=== PATIENT | female | born 1950 | race African-American/Black ===

== ENCOUNTER 2016-06-10 16:28 | Outpatient (CLI) | payer OTHER ==
[~2016-06-10 16:28] MED LIST: CITALOPRAM10 MG PO; COZAAR50 MG PO; ORETIC25 MG PO; PROAIR HFA0.09 MG/Ac IH; SPIRIVA MD18 MCG/CAP INH
== END 2016-06-10 19:51 | disposition home or self-care (01) ==
LOC: MLB 16:28
PROVIDERS: ATTEND Internal Medicine Geriatric Medicine
DX: R79.89 Other specified abnormal findings of blood chemistry (principal)

== ENCOUNTER 2016-09-14 16:59 | Outpatient (CLI) | payer OTHER ==
[~2016-09-14 16:59] MED LIST changes: +ALBU-136 IH; +CITA10TA98 PO; -CITALOPRAM10 MG PO; +COZ50 PO; -COZAAR50 MG PO; +ORE25 PO; -ORETIC25 MG PO; -PROAIR HFA0.09 MG/Ac IH; +SPIMDI INH; -SPIRIVA MD18 MCG/CAP INH
[2016-09-14 17:37] LABS: ALBUMIN 3.9 g/dL (3.4-5.0); ANION GAP 10.3 (8-16); CALCIUM 9.6 mg/dL (8.5-10.1); CARBON DIOXIDE 30.5 mmol/L (21-32); CREATININE 0.9 mg/dL (0.6-1.3); POTASSIUM 3.8 mmol/L (3.5-5.1); TOTAL BILIRUBIN 0.4 mg/dL (0.0-1.0)
== END 2016-09-14 19:37 | disposition home or self-care (01) ==
LOC: MLB 16:59
PROVIDERS: ATTEND Internal Medicine Geriatric Medicine
DX: R74.0 Nonspecific elevation of levels of transaminase and lactic acid dehydrogenase [LDH] (principal)
CPT/HCPCS: 36415; 80053; 82977; 83915

== ENCOUNTER 2016-12-22 16:58 | Outpatient (CLI) | payer OTHER ==
[2016-12-22 17:43] LABS: BASOPHILS # (AUTO) 0.3 K/uL (0.00-0.22); HEMOGLOBIN 12.9 g/dL (12.0-16.0)
[2016-12-22 17:46] LABS: BASOPHILS % (AUTO) 2.7 % (0.0-2.0); EOSINOPHILS # (AUTO) 0.3 K/uL (0-0.4); EOSINOPHILS % (AUTO) 2.7 % (0.0-4.0); HEMATOCRIT 39.5 % (36-48); LYMPHOCYTES # (AUTO) 2.8 K/uL (2.5-16.5); LYMPHOCYTES % (AUTO) 27.6 % (20.5-51.1); MEAN CORPUSCULAR HEMOGLOBIN 28 pg (27-31); MEAN CORPUSCULAR HGB CONC 33 g/dL (33-37); MEAN CORPUSCULAR VOLUME 84 fL (80-94); MONOCYTES # (AUTO) 0.6 K/uL (0.8-1.0); MONOCYTES % (AUTO) 5.6 % (1.7-9.3); NEUTROPHILS # (AUTO) 6.3 K/uL (1.8-7.7); NEUTROPHILS % (AUTO) 61.4 % (42.2-75.2); PLATELET COUNT (AUTO) 356 K/uL (140-450); RED BLOOD CELL COUNT(AUTO) 4.71 MIL/uL (4.20-5.40); RED CELL DISTRIBUTION WIDTH 14.1 % (11.6-13.7); WHITE BLOOD COUNT (AUTO) 10.3 K/uL (4.8-10.8)
[2016-12-22 17:58] LABS: ALBUMIN 4.1 g/dL (3.4-5.0); ANION GAP 11.4 (8-16); CALCIUM 9.5 mg/dL (8.5-10.1); CARBON DIOXIDE 30.7 mmol/L (21-32); POTASSIUM 4.1 mmol/L (3.5-5.1); TOTAL BILIRUBIN 0.5 mg/dL (0.0-1.0); TOTAL PROTEIN, SERUM 8.2 g/dL (6.4-8.2)
== END 2016-12-22 20:59 | disposition home or self-care (01) ==
LOC: MLB 16:58
PROVIDERS: ATTEND Internal Medicine Geriatric Medicine
DX: E11.9 Type 2 diabetes mellitus without complications (principal); K76.0 Fatty (change of) liver, not elsewhere classified
CPT/HCPCS: 36415; 80053; 83036; 85025

== ENCOUNTER 2017-01-20 14:02 | Outpatient (CLI) | payer OTHER | END 2017-01-20 20:26 | disposition home or self-care (01) | LOC: MRD 14:02 | PROVIDERS: ATTEND Internal Medicine Geriatric Medicine | DX: M47.894 Other spondylosis, thoracic region (principal); M85.88 Other specified disorders of bone density and structure, other site | CPT/HCPCS: 72072 ==

== ENCOUNTER 2017-03-20 14:47 | Outpatient (CLI) | payer OTHER ==
[2017-03-20 15:58] LABS: ANION GAP 14.1 (8-16); CARBON DIOXIDE 26.9 mmol/L (21-32)
[2017-03-20 15:59] LABS: ALBUMIN 3.8 g/dL (3.4-5.0); CHOL/HDL RATIO 2.5 (1-4.5); THYROID STIMULATING HORMONE 0.89 uIU/mL (0.34-3.74); TOTAL BILIRUBIN 0.3 mg/dL (0.0-1.0)
== END 2017-03-20 20:38 | disposition home or self-care (01) ==
LOC: MLB 14:47
PROVIDERS: ATTEND Internal Medicine Geriatric Medicine
DX: J44.9 Chronic obstructive pulmonary disease, unspecified (principal); R73.03 Prediabetes; E78.5 Hyperlipidemia, unspecified; E55.9 Vitamin D deficiency, unspecified
CPT/HCPCS: 36415; 71020; 80053; 82306; 83036; 84443

== ENCOUNTER 2017-04-12 23:30 | Emergency (ER) | payer OTHER ==
[~2017-04-12] VITALS: Ht 157.5 cm; Wt 96.6 kg
[2017-04-12 23:35] VITALS: BP 129/65
--- NOTE | 2017-04-12 23:41 | NUR ---
AMBULATED TO ER BED 2
--- NOTE | 2017-04-12 23:45 | NUR ---
Patient being evaluated by physician at bedside.
[2017-04-12] MEDS ORDERED: PHENAZOPYRIDINE 100 MG TAB PO ONE (23:50)
[2017-04-12 23:56] LABS: APPEARANCE,URINE CLOUDY (CLEAR); COLOR,URINE BLOODY (YELLOW); PH,URINE 6.5 (5.0-9.0); UGLUCOSE TRACE (NEGATIVE)
[2017-04-12 23:57] LABS: BILIRUBIN,URINE NEGATIVE (NEGATIVE); BLOOD, URINE 3+ (NEGATIVE); LEUKOCYTE ESTERASE ,URINE 2+ (NEGATIVE); NITRITE, URINE POSITIVE (NEGATIVE)
[2017-04-12 23:59] LABS: RBC,URINE TOO NUMEROUS TO COUN /HPF (0-5); WBC,URINE 20-60 /HPF (0-5); YEAST,URINE Moderate /HPF (None Seen)
--- NOTE | 2017-04-13 | NUR ---
66Y/F PT. PRESENTS TO ED WITH C/O BURNING UPON URINATION X 3 DAYS. AAO X4, AMBULATORY WITH STEADY GAIT. SKIN WARM AND DRY. C/O BLADDER PAIN 8/10. VSS, ER MADE AWARE OF PT. STATUS.
[2017-04-13] MEDS ORDERED: cefTRIAXone 1,000 MG in LIDOCAINE 1% ***ER ONLY *** 2.1 ML IM ONE (00:05)
--- NOTE | 2017-04-13 00:30 | NUR ---
Patient discharged with v/s stable. Written and verbal after care instructions given and explained. Patient alert, oriented and verbalized understanding of instructions. Ambulatory with steady gait. All questions addressed prior to discharge. ID band removed. Patient advised to follow up with PMD. Rx of CIPRO 500 MG, PYRIDIUM 100 MG, TYLENOL 500 MG given. Patient educated on indication of medication including possible reaction and side effects. Opportunity to ask questions provided and answered.
[2017-04-13 01:34] VITALS: BP 129/65
== END 2017-04-13 00:30 | disposition home or self-care (01) ==
LOC: MED 23:30
DX: N39.0 Urinary tract infection, site not specified (principal); J45.909 Unspecified asthma, uncomplicated; J44.9 Chronic obstructive pulmonary disease, unspecified; I10 Essential (primary) hypertension; Z90.49 Acquired absence of other specified parts of digestive tract; Z79.899 Other long term (current) drug therapy; Z88.5 Allergy status to narcotic agent; Z88.8 Allergy status to other drugs, medicaments and biological substances
CPT/HCPCS: 81001; 87086; 87186; 96372; 99284; J0696; J2001

== ENCOUNTER 2017-10-27 10:23 | Inpatient (IN) | payer OTHER ==
[~2017-10-27] VITALS: Ht 157.5 cm; Wt 98.4 kg
[2017-10-27 10:29] VITALS: BP 134/74
--- NOTE | 2017-10-27 10:34 | NUR ---
REPORT GIVEN TO NIKA REINA.
--- NOTE | 2017-10-27 10:35 | NUR ---
PT AMBULATED TO ER BED 08
--- NOTE | 2017-10-27 10:40 | NUR ---
PATIENT REPORTS TO ED WITH COMPLAINTS OF ABDOMINAL PAIN THAT STARTS IN THE EPIGASTRIC AREA AND RADIATES TO THE RIGHT SIDE. PATIENT REPORTS PAIN STARTED YESTEDAY WITH NAUSEA AND DRY HEAVES. PATIENT DENIES EATING UNFAMILIAR FOODS. REPORTS LAST BM YESTERDAY AND NORMAL. SKIN IS PINK/WARM/DRY; AAOX4 WITH EVEN AND STEADY GAIT; LUNGS CLEAR BL; HR EVEN AND REGULAR; PT DENIES ANY FEVER, CP, SOB, OR COUGH AT THIS TIME; PATIENT STATES PAIN OF 9/10 AT THIS TIME; VSS; PATIENT POSITIONED FOR COMFORT; HOB ELEVATED; BEDRAILS UP X1; BED DOWN. ER MD MADE AWARE OF PT STATUS.
[2017-10-27] MEDS ORDERED: NACL 0.9% 1,000 ML IV SCH (11:46)
[2017-10-27] MEDS ORDERED: ONDANSETRON 4 MG/2 ML VIAL IVP ONE ×2 (11:50→21:05)
[2017-10-27] MEDS ORDERED: HYDROmorphone PFS 2 MG/ML SYR IVP ONE (11:50)
--- NOTE | 2017-10-27 12:15 | NUR ---
Patient appears to be resting comfortably in bed. Vital Signs within normal limits. Respirations even and unlabored.
[2017-10-27 12:20] LABS: HEMATOCRIT 39.4 % (36-48); MEAN CORPUSCULAR HEMOGLOBIN 27 pg (27-31); MEAN CORPUSCULAR HGB CONC 33 g/dL (33-37); MEAN CORPUSCULAR VOLUME 82.4 fL (80-94); PLATELET COUNT (AUTO) 302 K/uL (140-450); RED BLOOD CELL COUNT(AUTO) 4.77 MIL/uL (4.20-5.40); RED CELL DISTRIBUTION WIDTH 14.6 % (11.6-13.7); WHITE BLOOD COUNT (AUTO) 17.9 K/uL (4.8-10.8)
[2017-10-27 12:29] LABS: ALBUMIN 3.8 g/dL (3.4-5.0); ANION GAP 11.9 (8-16); CARBON DIOXIDE 28.7 mmol/L (21-32); CREATININE 0.9 mg/dL (0.6-1.3); POTASSIUM 3.6 mmol/L (3.5-5.1); TOTAL BILIRUBIN 0.7 mg/dL (0.0-1.0)
[2017-10-27 12:35] LABS: LYMPHOCYTES % (MANUAL) 3 % (20-46); MONOCYTES % (MANUAL) 1 % (5-12)
[2017-10-27] MEDS ORDERED: PIPERACILLIN/TAZOBACTAM 4.5 GM in DEXTROSE 5% 100 ML IV ONE (13:45)
[2017-10-27] MEDS ORDERED: NACL 0.9% 1,000 ML IV ONE (13:45)
[2017-10-27] MEDS ORDERED: POTASSIUM CHL 20 MEQ/D5-1/2NS 1,000 ML IV ONE (13:50)
[2017-10-27] MEDS ORDERED: HYDROmorphone PFS 2 MG/ML SYR IVP PRN (13:50)
[2017-10-27] MEDS ORDERED: PIPERACILLIN/TAZOBACTAM 2.25 GM VIAL IV ONE (13:57)
[2017-10-27 14:22] LABS: APPEARANCE,URINE CLEAR (CLEAR); BILIRUBIN,URINE NEGATIVE (NEGATIVE); BLOOD, URINE NEGATIVE (NEGATIVE); COLOR,URINE YELLOW (YELLOW); LEUKOCYTE ESTERASE ,URINE NEGATIVE (NEGATIVE); NITRITE, URINE NEGATIVE (NEGATIVE); UGLUCOSE NEGATIVE (NEGATIVE)
--- NOTE | 2017-10-27 14:30 | NUR ---
Patient will be admitted to care of dr blevins. Admited to [facility]. Will go to room 118. Belongings list completed. Report to LATOSHA Mckeon.
[2017-10-27 14:35] VITALS: BP 126/56
--- NOTE | 2017-10-27 14:35 | NUR ---
PATIENT ARRIVED VIA GURNEY. RECEIVED REPORT FROM E.Quan NURSE AT THIS TIME. PATIENT IS A&OX4. NO DISTRESS NOTED. NO RESPIRATORY DEPRESSION NOTED. PATIENT HAS A DRY NON-PRODUCTIVE COUGH. PATIENT HAS IV ACCESS ON LEFT AC 20G RUNNING ZOSYN. SWABBED PATIENT'S NOSE WITH MRSA SWAB. PLACED APPROPRIATE SIGNS WITHIN THE ROOM. PATIENT'S AT BEDSIDE. VITAL SIGNS ARE STABLE. WILL CONTINUE TO MONITOR PATIENT.
--- NOTE | 2017-10-27 16:00 | NUR ---
PATIENT RESTING IN BED. WILL CONTINUE TO MONITOR PATIENT.
[2017-10-27] MEDS ORDERED: NON-FORMULARY ITEM (Albuterol Sulfate Hfa* (Proair Hfa*) 2 PUFF) IH PRN (17:05)
[2017-10-27] MEDS ORDERED: HYDROmorphone 1 MG/ML AMP IVP PRN (17:45)
--- NOTE | 2017-10-27 19:25 | NUR ---
GAVE REPORT TO NIGHTSHIFT NURSE. PATIENT IN STABLE CONDITION.
--- NOTE | 2017-10-27 19:35 | NUR ---
RECEIVED REPORT FROM DAY SHIFT RN, PATIENT RESTING IN BED, NO S/S OF DISTRESS NOTED, RESPIRATION EVEN AND UNLABORED, ON ROOM AIR. IV PATENT AND INTACT, PLAN OF CARE DISCUSSED, PATIENT VERBALIZED UNDERSTANDING, CALL LIGHT WITHIN REACH, SAFETY MEASURE ENSURED, WILL CONTINUE TO MONITOR.
--- NOTE | 2017-10-27 20:05 | NUR ---
TEMP 100.7, BP 111/58, HR 106, RR 19, O2SAT 92%, DR. BERNABE AT THE BEDSIDE. DR. BERNABE IS AWARE OF THE TEMPERATURE. NO ORDER RECEIVED AT THIS TIME.
--- NOTE | 2017-10-27 20:20 | NUR ---
SPOKE WITH PATIENT AND USES BIPAP AT HOME WITH PRESSURE SETTING +16/10. PATIENT PLACE ON BIPAP +16/10, RR-10, FIO2-28% . NO SIGN OF RESPIRATORY DISTRESS NOTED
[2017-10-27] MEDS ORDERED: BUPIVACAINE MPF 0.25% 10 ML VIAL INJ ONE (20:52)
[2017-10-27] MEDS: PIPER/TAZO 3.375GM/D5W PREMIX 50 ML IV SCH (20:57)
[2017-10-27] MEDS ORDERED: SUCCINYLCHOLINE CHLORIDE 200 MG/10 ML VIAL IV ONE (21:05)
[2017-10-27] MEDS ORDERED: NEOSTIGMINE 1:1000 10 MG/10 ML VIAL IM ONE (21:05)
[2017-10-27] MEDS ORDERED: GLYCOPYRROLATE 0.2 MG/ML VIAL IV ONE (21:05)
[2017-10-27] MEDS ORDERED: DESFLURANE 240 ML BTL INH ONE (21:05)
[2017-10-27] MEDS ORDERED: PROPOFOL 200 MG/20 ML VIAL IV ONE (21:05)
[2017-10-27] MEDS ORDERED: ROCURONIUM 50 MG/5 ML VIAL IV ONE (21:05)
--- NOTE | 2017-10-27 21:08 | NUR ---
PATIENT OFF THE UNIT FOR SURGERY IN STABLE CONDITION.
--- NOTE | 2017-10-27 21:10 | NUR ---
AKANKSHA BARAHONA, PT GOING TO SURGERY
[2017-10-27] MEDS ORDERED: MIDAZOLAM 2 MG/2 ML VIAL ONE (21:24)
[2017-10-27] MEDS ORDERED: MEPERIDINE 50 MG/ML SYR ONE (21:24)
[2017-10-27] MEDS ORDERED: MEPERIDINE 25 MG/ML SYR IVP PRN ×2 (22:20)
[2017-10-27] MEDS ORDERED: METOCLOPRAMIDE 10 MG/2 ML INJ VIAL IVP PRN (22:20)
[2017-10-27] MEDS ORDERED: MIDAZOLAM 2 MG/2 ML VIAL IVP SCH (23:00)
[2017-10-27 23:55] VITALS: BP 97/43
--- NOTE | 2017-10-27 23:55 | NUR ---
PATIENT IS BACK FROM SURGERY, AWAKE ALERT ORIENTED X4, NO S/S OF DISTRESS NOTED, RESPIRATION EVEN AND UNLABORED, FOUR ABDOMINAL INCISIONS NOTED WITHOUT DRESSING, INCISIONS CLEAN AND DRY. VITAL SIGNS STABLE, CALL LIGHT WITHIN REACH, SAFETY MEASURE ENSURED, WILL CONTINUE TO MONITOR.
[2017-10-28] MEDS ORDERED: ALBUTEROL SULFATE/IPRATROPIU 3 ML SOL IH PRN (00:45)
[2017-10-28] MEDS ORDERED: ALBUTEROL SULFATE/IPRATROPIU 3 ML SOL IH ONE (00:46)
--- NOTE | 2017-10-28 00:47 | NUR ---
PATIENT FEELING SHORTNESS OF BREATH, O2SAT 83%, RT AT THE BEDSIDE. PAGED DR. HUANG, RECEIVED ORDER OF 3ML DUONEB BREATHING TREATMENT PRN Q4H FOR SOB, AND O2 VIA NASAL CANNULA TO KEEP O2SAT BETWEEN 90% - 93%. ORDER READ BACK AND DR. HUANG CONFIRMED.
--- NOTE | 2017-10-28 02:41 | NUR ---
PATIENT IS SLEEPING, NO S/S OF DISTRESS NOTED, RESPIRATION EVEN AND UNLABORED, ON O2 NC 2L. O2SAT 92%. CALL LIGHT WITHIN REACH, SAFETY MEASURE ENSURED, WILL CONTINUE TO MONITOR.
[2017-10-28] MEDS: PIPER/TAZO 3.375GM/D5W PREMIX 50 ML IV SCH ×3 (04:28→20:48)
[2017-10-28] MEDS: HYDROmorphone 1 MG/ML AMP IVP PRN ×2 (04:39→09:14)
[2017-10-28 07:31] LABS: HEMATOCRIT 36.6 % (36-48); HEMOGLOBIN 11.9 g/dL (12.0-16.0); MEAN CORPUSCULAR HEMOGLOBIN 27 pg (27-31); MEAN CORPUSCULAR HGB CONC 33 g/dL (33-37); MEAN CORPUSCULAR VOLUME 83.5 fL (80-94); PLATELET COUNT (AUTO) 254 K/uL (140-450); RED BLOOD CELL COUNT(AUTO) 4.39 MIL/uL (4.20-5.40); WHITE BLOOD COUNT (AUTO) 19.7 K/uL (4.8-10.8)
[2017-10-28 07:36] LABS: CARBON DIOXIDE 22.4 mmol/L (21-32); CREATININE 1.6 mg/dL (0.6-1.3); POTASSIUM 3.4 mmol/L (3.5-5.1)
--- NOTE | 2017-10-28 07:37 | NUR ---
ENDORSED PLAN OF CARE TO DAY SHIFT, AND THE DAY SHIFT RN IS AWARE THAT TWO INCISIONS HAVE MINIMUM AMOUNT OF BLOOD NOTED ON THE GAUZE, AND NEED TO FOLLOW UP WITH DR. BERNABE. PATIENT IS IN STABLE CONDITION.
--- NOTE | 2017-10-28 07:45 | NUR ---
RECEIVED PT FROM STAFF SOFTWARE ENGINEER NURSE, [place], PT IS AWAKE AND SEATED ON THE BED, WITH ON THE BEDSIDE. PT HAS AN IV LINE ON THE LEFT AC G.20, NO IVF RUNNING. PT IS ALERT, ORIENTEDX4. PT IS ON O2 VIA NC AT 2L. SIDE RAILS ARE UP AND CALL LIGHT WITHIN REACH. PT IS S/P APPENDECTOMY, SURGICAL INCISION CHECKED AND SAW A SCANT OF BLOOD, DRESSING WAS PLACED. 2 SURGICAL INCISIONS ARE ON THE MID ABDOMEN AND 2 ON THE LEFT ABDOMINAL SIDE. NO DRAINAGE NOTED EXCEPT FOR A SCANT OF BLOOD. NO SIGN OF DISTRESS NOTED AND WILL CONTINUE TO MONITOR.
[2017-10-28 08:00] VITALS: BP 107/54
[2017-10-28 08:04] LABS: LYMPHOCYTES % (MANUAL) 4 % (20-46); MONOCYTES % (MANUAL) 3 % (5-12)
[2017-10-28] MEDS: CITALOPRAM 20 MG TAB PO SCH (08:30)
--- NOTE | 2017-10-28 08:38 | NUR ---
PATIENT HAS BEEN SCREENED AND CATEGORIZED MODERATE NUTRITION RISK. PATIENT WILL BE SEEN WITHIN 3-5 DAYS OF ADMISSION. 10/30/17 11/01/[address]
[2017-10-28] MEDS: LOSARTAN 50 MG TAB PO SCH (08:47)
[2017-10-28] MEDS ORDERED: NON-FORMULARY ITEM (Tiotropium Bromide* (Spiriva Mdi*) 1 CAP) INH SCH (09:00)
[2017-10-28] MEDS ORDERED: CITALOPRAM HYDROBROMIDE 10 MG PO SCH (09:00)
--- NOTE | 2017-10-28 09:02 | NUR ---
RECEIVED A TELEPHONE ORDER FROM DR. HUANG TO GIVE A BOLUS OF 500CC OF SALINE FOR 2H. ORDER READ BACK AND ACKNOWLEDGED. WILL CARRY OUT ORDER.
[2017-10-28] MEDS ORDERED: NACL 0.9% 500 ML IV SCH ×2 (09:05→09:15)
--- NOTE | 2017-10-28 09:07 | NUR ---
AWAKE AND ALERT RESPONSIVE PATIENT C/O SOB HHN PRM THERAPY GIVEN AT THIS TIME [facility] V60 BIPAP AT BEDSIDE
--- NOTE | 2017-10-28 11:42 | NUR ---
RECEIVED A TELEPHONE ORDER FROM DR. BERNABE FOR THE PT. DR. BERNABE ORDER A FLAGYL 500MG IV Q8H, TORADOL 30MG IV Q6H PRN FOR MODERATE PAIN, PT CONSULT AND FOR PT TO REMAIN ON FULL LIQUID DIET FOR THE NEXT 24H-48H. ORDERS READ BACK AND ACKNOWLEDGED. WILL CARRY OUT MD ORDERS.
[2017-10-28] MEDS: metroNIDAZOLE 500 MG/NS PREMIX 100 ML IV SCH ×2 (12:25→21:19)
--- NOTE | 2017-10-28 13:30 | NUR ---
DR. MISHA HUANG VISITED AND SAW THE PT AND MADE ORDERS FOR THE PT. ACKNOWLEDGED ORDERS.
[2017-10-28] MEDS ORDERED: DEXTROSE 50% 50 ML SYR IVP PRN (13:40)
[2017-10-28] MEDS ORDERED: INSULIN LISPRO SLIDING SCALE 100 UNITS/ML VIAL SUBQ PRN (13:40)
[2017-10-28] MEDS: KETOROLAC 30 MG/ML VIAL IVP PRN ×2 (15:50→22:03)
[2017-10-28 16:00] VITALS: BP 104/52
--- NOTE | 2017-10-28 16:00 | NUR ---
PT VERBALIZED A PAIN RATE OF 5/10 AND MEDICATION WAS GIVEN VIA IV PUSH AND PT TOLERATED IT. WILL REASSESS PAIN LEVEL AFTER AN HR.
--- NOTE | 2017-10-28 17:00 | NUR ---
PT IS AWAKE AND BLOOD GLUCOSE CHECK DONE RESULT IS 122 AND NO INSULIN COVERAGE NEEDED. VITAL SIGNS TAKEN AND IS STABLE. NO SIGN OF DISTRESS NOTED. WILL MONITOR.
[2017-10-28] MEDS: BLOOD GLUCOSE MONITORING 1 DEV DEV FS SCH (17:12)
--- NOTE | 2017-10-28 19:35 | NUR ---
RECEIVED PATIENT AWAKE RESTING COMFORTABLY ON BED. PATIENT AOX4. BED IN LOW POSITION. PATIENT WAS COOPERATIVE AND COMPLAINTS. CALL LIGHTS WITHIN REACH. WILL CONTINUE TO MONITOR.
--- NOTE | 2017-10-28 19:35 | NUR ---
ENDORSED PT TO MANAGER INTERMEDIATE NURSE FOR CONTINUITY OF CARE, PT IS STABLE AT THIS TIME. SURGICAL INCISIONS WERE CHECKED AND MINIMAL DRAINAGE NOTED ON THE DRESSING, MANAGER INTERMEDIATE NURSE SAW THE ASSESSMENT MADE ON THE WOUND PART OF THE ENDORSEMENT.
--- NOTE | 2017-10-28 21:00 | NUR ---
MEDICATION GIVEN AND BS TAKEN. NO COMPLAIN OF PAIN AT THIS TIME. V/S TAKEN AND RECORDED. CALL LIGHT WITHIN REACH. BED IN LOW POSITION. WILL CONTINUE TO MONITOR.
--- NOTE | 2017-10-28 23:20 | NUR ---
SEEN PATIENT ASLEEP ON BED IN COMFORTABLE POSITION. NO S/S OF DISTRESS NOTED AT THIS TIME. CALL LIGHT WITHIN REACH. WILL CONTINUE TO MONITOR.
[2017-10-29] VITALS: BP 118/59
--- NOTE | 2017-10-29 01:20 | NUR ---
CHECKED PATIENT RESTING ON BED IN HIGH FOWLERS POSITION. CALL LIGHTS WITHIN REACH. NO S/S OF DISTRESS NOTED AT THIS TIME. WILL CONTINUE TO MONITOR.
--- NOTE | 2017-10-29 03:40 | NUR ---
CHECKED PATIENT ASLEEP BUT EASILY AROUSABLE. CALL LIGHTS WITHIN REACH.
[2017-10-29] MEDS: PIPER/TAZO 3.375GM/D5W PREMIX 50 ML IV SCH ×3 (04:10→23:45)
[2017-10-29] MEDS: metroNIDAZOLE 500 MG/NS PREMIX 100 ML IV SCH ×2 (04:15→12:58)
[2017-10-29] MEDS: BLOOD GLUCOSE MONITORING 1 DEV DEV FS SCH ×3 (06:06→16:27)
--- NOTE | 2017-10-29 07:26 | NUR ---
ENDORSEMENT GIVEN TO AM SHIFT FOR CONTINUITY OF CARE. PATIENT IN STABLE CONDITION.
--- NOTE | 2017-10-29 07:28 | NUR ---
RECEIVED REPORT FROM COATING OPERATOR RN. PATIENT IS RESTING IN BED, AROUSABLE BY VOICE. AAO X4. LUNGS CTA IN ALL [place]ACK[place]. HEART RHYTHM IS REGULAR, S1 AND S2 NOTED. ABDOMINAL INCISIONS FROM LAP APPENDECTOMY ARE CLEAN, DRY, AND INTACT. IV SITE IS PATENT AND ASYMPTOMATIC. PATIENT COMPLAINS OF NAUSEA, WILL ADMINISTER REGLAN PER MD ORDERS. DISCUSSED PLAN OF CARE WITH PATIENT. PATIENT VERBALIZED UNDERSTANDING. ALL SAFETY MEASURES ARE IN PLACE, CALL LIGHT WITHIN REACH. WILL CONTINUE TO MONITOR.
[2017-10-29 07:40] LABS: HEMATOCRIT 37.7 % (36-48); MEAN CORPUSCULAR HEMOGLOBIN 27 pg (27-31); MEAN CORPUSCULAR HGB CONC 32 g/dL (33-37); MEAN CORPUSCULAR VOLUME 83.9 fL (80-94); PLATELET COUNT (AUTO) 269 K/uL (140-450); RED CELL DISTRIBUTION WIDTH 15.3 % (11.6-13.7); WHITE BLOOD COUNT (AUTO) 19.1 K/uL (4.8-10.8)
[2017-10-29] MEDS: KETOROLAC 30 MG/ML VIAL IVP PRN (07:42)
[2017-10-29 07:52] LABS: ANION GAP 13.5 (8-16); CARBON DIOXIDE 27.7 mmol/L (21-32); CREATININE 1.3 mg/dL (0.6-1.3); POTASSIUM 3.2 mmol/L (3.5-5.1)
[2017-10-29 08:00] VITALS: BP 122/65
[2017-10-29 08:48] LABS: LYMPHOCYTES % (MANUAL) 7 % (20-46); MONOCYTES % (MANUAL) 5 % (5-12)
[2017-10-29] MEDS ORDERED: POTASSIUM CHL 40 MEQ/ D5-1/2NS 1,000 ML IV SCH (09:25)
[2017-10-29] MEDS ORDERED: POTASSIUM CHLORIDE 40 MEQ in DEXT 5% /NACL 0.9% 1,000 ML IV SCH (09:30)
[2017-10-29] MEDS: LOSARTAN 50 MG TAB PO SCH (09:59)
--- NOTE | 2017-10-29 09:59 | NUR ---
SCHEDULED MEDICATIONS GIVEN AT THIS TIME PER MD ORDERS. PATIENT DENIES PAIN. NO DISTRESS NOTED. WILL CONTINUE TO MONITOR.
[2017-10-29] MEDS: CITALOPRAM 20 MG TAB PO SCH (10:00)
[2017-10-29] MEDS ORDERED: PANTOPRAZOLE 40 MG TABEC PO SCH (10:00)
--- NOTE | 2017-10-29 11:30 | NUR ---
PATIENT STATES SHE HAD A BM AND IS NOW PASSING GAS. WILL CONTINUE TO MONITOR.
[2017-10-29] MEDS ORDERED: POTASSIUM CHLORIDE 40 MEQ, LIDOCAINE 1% 25 MG in NACL 0.9% 250 ML IV SCH (12:00)
[2017-10-29] MEDS ORDERED: ONDANSETRON 4 MG/2 ML VIAL IVP PRN (12:35)
--- NOTE | 2017-10-29 12:40 | NUR ---
PATIENT HAD ONE EPISODE OF VOMITING. VOLUME OF VOMITUS IS 400 ML. COLOR IS LIGHT GREEN. WILL ADMINISTER ZOFRAN PER MD ORDERS. PATIENT IS NOT IN DISTRESS. STATES THAT SHE "FEELS BETTER AFTER THE VOMITING". WILL CONTINUE TO MONITOR.
--- NOTE | 2017-10-29 14:13 | NUR ---
PATIENT IS RESTING IN BED, AROUSABLE BY VOICE. NO COMPLAINTS OF PAIN. SCHEDULED MEDICATIONS GIVEN AT THIS TIME. WILL CONTINUE TO MONITOR.
[2017-10-29 16:00] VITALS: BP 112/68
[2017-10-29] MEDS ORDERED: METOCLOPRAMIDE 10 MG/2 ML INJ VIAL IVP PRN (18:10)
[2017-10-29] MEDS: ALUMINUM HYD/MAG/SIMETHICONE 30 ML UDC PO PRN (18:22)
--- NOTE | 2017-10-29 19:27 | NUR ---
REPORT GIVEN TO KILN REPAIRER NURSE AT BEDSIDE. PATIENT IS IN STABLE CONDITION.
--- NOTE | 2017-10-29 19:27 | NUR ---
RECEIVED PATIENT ON BED IN HIGH FOWLERS POSITION. DISCUSS PLAN OF CARE AND VERBALIZED UNDERSTANDING. BED IN LOW POSITION. CALL LIGHT WITHIN REACH.
[2017-10-29] MEDS: POTASSIUM CHL 20 MEQ/NACL 0.9% 1,000 ML IV SCH (19:37)
--- NOTE | 2017-10-29 21:00 | NUR ---
SEEN PATIENT AWAKE ON BED IN HIGH FOWLERS POSITION. NO COMPLAIN OF VOMITING AT THIS TIME. CALL LIGHT WITHIN REACH. WILL CONTINUE TO MONITOR.
--- NOTE | 2017-10-29 23:05 | NUR ---
SEEN PATIENT RESTING ON BED COMFORTABLY. CALL LIGHT WITHIN REACH. WILL CONTINUE TO MONITOR.
[2017-10-30] VITALS: BP 106/67
--- NOTE | 2017-10-30 | NUR ---
MISSED THE 1200 MIDNIGHT DESTINYN . WHEN I SCANNED THE MEDICATION ITS SAYS MEDICATION DISCONTINUE. WHEN I LOOK AND CHECK THE ORDERS IT WAS CHANGED FROM Q8H TO Q6H. CALLED PHARMACY AND NOTIFIED ABOUT IT. CHARGED NURSE AWARE.
--- NOTE | 2017-10-30 02:09 | NUR ---
SEEN PATIENT ASLEEP ON BED. CALL LIGHT WITHIN REACH. NO S/S OF DISTRESS NOTED AT THIS TIME. NO COMPLAIN OF NAUSEA AND VOMITING AT THIS TIME. WILL CONTINUE TO MONITOR.
--- NOTE | 2017-10-30 03:59 | NUR ---
RECEIVED REPORT FROM BETSY REINA.PT'S CONDITION IS STABLE.IVF IS IN PROGRESS.WILL CONTINUE MONITORING.
[2017-10-30] MEDS ORDERED: PIPERACILLIN/TAZOBACTAM 3.375 GM VIAL IV ONE (06:07)
[2017-10-30] MEDS: PIPER/TAZO 3.375GM/D5W PREMIX 50 ML IV SCH ×3 (06:20→17:13)
[2017-10-30] MEDS: BLOOD GLUCOSE MONITORING 1 DEV DEV FS SCH ×3 (06:20→16:16)
[2017-10-30] MEDS: PANTOPRAZOLE 40 MG TABEC PO SCH (06:22)
--- NOTE | 2017-10-30 06:52 | NUR ---
SLEPT WELL.NO DISTRESS NOTED NOW.SJ=[id number].NO COVERAGE NEEDED.
[2017-10-30 07:14] LABS: HEMATOCRIT 36.6 % (36-48); HEMOGLOBIN 12.1 g/dL (12.0-16.0); MEAN CORPUSCULAR HEMOGLOBIN 28 pg (27-31); MEAN CORPUSCULAR HGB CONC 33 g/dL (33-37); MEAN CORPUSCULAR VOLUME 83.4 fL (80-94); PLATELET COUNT (AUTO) 322 K/uL (140-450); RED BLOOD CELL COUNT(AUTO) 4.39 MIL/uL (4.20-5.40); RED CELL DISTRIBUTION WIDTH 14.9 % (11.6-13.7); WHITE BLOOD COUNT (AUTO) 15.5 K/uL (4.8-10.8)
[2017-10-30 07:32] LABS: ANION GAP 10.8 (8-16); CARBON DIOXIDE 26.8 mmol/L (21-32); CREATININE 1.1 mg/dL (0.6-1.3); POTASSIUM 3.6 mmol/L (3.5-5.1)
[2017-10-30 08:00] VITALS: BP 128/68
[2017-10-30 08:11] LABS: LYMPHOCYTES % (MANUAL) 5 % (20-46); MONOCYTES % (MANUAL) 3 % (5-12)
[2017-10-30] MEDS ORDERED: PANTOPRAZOLE 40 MG TABEC PO SCH (09:00)
--- NOTE | 2017-10-30 09:00 | NUR ---
SPOKE WITH DR. BERNABE ON THE PHONE, WILL PLACE NEW ORDERS PER ORDER
[2017-10-30] MEDS: LOSARTAN 50 MG TAB PO SCH (09:12)
[2017-10-30] MEDS: POTASSIUM CHL 20 MEQ/NACL 0.9% 1,000 ML IV SCH ×2 (09:12→22:25)
[2017-10-30] MEDS: CITALOPRAM 20 MG TAB PO SCH (09:13)
--- NOTE | 2017-10-30 12:09 | NUR ---
PATIENT IS SLEEPING COMFORTABLY. RESPIRATION EVEN, UNLABOR ON ROOM AIR. NO DISTRESS NOTED AT THIS TIME. CALL LIGHT WITHIN REACH
--- NOTE | 2017-10-30 14:10 | NUR ---
PATIENT AWAKE, ALERT, EATING LUNCH COMFORTABLY. RESPIRATION EVEN, UNLABOR ON ROOM AIR. INCISIONS WERE REENFORCED WITH STERI STRIP PER ORDER. NO DISTRESS NOTED AT THIS TIME. CALL LIGHT WITHIN REACH
--- NOTE | 2017-10-30 14:19 | NUR ---
PHYSICAL THERAPY CO-SIGN The Physical Therapy Progress Notes documented by Feed Mill Supervisor have been reviewed. I CONCUR W/[employer] NOTE; TO DC PT SERVICES, GOALS MET Reviewed/Co-Signed by: Katelyn Harris, PT Documentation Done by: AMELIA LEOS [employer] Addendum: 10/30/17 at 1421 by Katelyn Harris PT Amended: Links added.
[2017-10-30 16:00] VITALS: BP 127/69
--- NOTE | 2017-10-30 16:19 | NUR ---
PATIENT AWAKE, ALERT. RESPIRATION EVEN, UNLABOR ON ROOM AIR. DENIED PAIN, N/V AT THIS TIME. VS IS STABLE. NO DISTRESS NOTED AT THIS TIME. CALL LIGHT WITHIN REACH
--- NOTE | 2017-10-30 18:16 | NUR ---
PATIENT WAS AMBULATING AROUND THE HALLWAY, NO DISTRESS NOTED.
--- NOTE | 2017-10-30 19:18 | NUR ---
ENDORSEMENT GIVEN TO THE INDUSTRIAL SAFETY AND HEALTH SPECIALIST NURSE. PATIENT IS STABLE AT THIS TIME
--- NOTE | 2017-10-30 19:19 | NUR ---
RECD. RESTING IN BED, AWAKE, A/OX4. RESPIRATION EVEN AND UNLABORED. IV OF NS +20MEQ KCL INFUSING AT 75 ML/HR.,LEFT AC G20. INCISION IN THE ABDOMEN (4) WITH STERI STRIPS, ALL DRY AND INTACT. NO NAUSEA/VOMITING. PAIN IN THE ABDOMEN 05/19, STATED TOLERABLE. INSTRUCTED TO CALL NURSE WHEN FEELING INCREASING PAIN. AGREED. PLAN OF CARE FOR THE SHIFT DISCUSSED. VERBALIZED UNDERSTANDING.
[2017-10-30] MEDS: ALUMINUM HYD/MAG/SIMETHICONE 30 ML UDC PO PRN (20:15)
[2017-10-30] MEDS: HYDROcodone/APAP 5/325 MG 1 TAB TAB PO PRN (20:16)
--- NOTE | 2017-10-30 22:00 | NUR ---
STATED SHE DOES NOT WANT TO BE CONNECTED TO BIPAP WHEN SHE SLEEP.
[2017-10-31] VITALS: BP 111/60
--- NOTE | 2017-10-31 | NUR ---
RESTING IN BED COMFORTABLY SLEEPING. REFUSED PAIN MEDICATION WHEN OFFERED, STATED PAIN IS TOLERABLE.
[2017-10-31] MEDS: PIPER/TAZO 3.375GM/D5W PREMIX 50 ML IV SCH ×3 (00:45→11:52)
[2017-10-31] MEDS: PANTOPRAZOLE 40 MG TABEC PO SCH (06:25)
--- NOTE | 2017-10-31 06:30 | NUR ---
ABLE TO SLEEP WELL. AWAKE, DID HER AM CARE. NEAR BEDSIDE.
[2017-10-31] MEDS: HYDROcodone/APAP 5/325 MG 1 TAB TAB PO PRN (06:35)
[2017-10-31] MEDS: BLOOD GLUCOSE MONITORING 1 DEV DEV FS SCH ×3 (06:49→16:44)
--- NOTE | 2017-10-31 07:30 | NUR ---
CONDITION REMAIN STABLE. ENDORSED TO AM NURSE FOR CONTINUITY OF CARE.
[2017-10-31 08:00] VITALS: BP 124/62
--- NOTE | 2017-10-31 08:04 | NUR ---
PATIENT AWAKE, ALERT. RESPIRATION EVEN, UNLABOR ON ROOM AIR. SKIN DRY AND WARM. LUNGS SOUND CLEAR THROUGHOUT. BOWEL SOUND ACTIVE. DENIED PAIN, SOB AT THIS TIME. STATED SHE HAD 1 SMALL EMESIS THIS AM. IV PATENT AND INTACT. INCISIONS ARE DRY AND CLEAN. PLAN OF CARE WAS DISCUSSED WITH PATIENT. BED AT LOW POSITION. SIDE RAILS UP. CALL LIGHT WITHIN REACH
[2017-10-31] MEDS: LOSARTAN 50 MG TAB PO SCH (09:13)
[2017-10-31] MEDS: CITALOPRAM 20 MG TAB PO SCH (09:13)
[2017-10-31 09:31] LABS: ANION GAP 13.1 (8-16); CARBON DIOXIDE 26.9 mmol/L (21-32); CREATININE 1.1 mg/dL (0.6-1.3)
[2017-10-31 09:37] LABS: BASOPHILS # (AUTO) 0.1 K/uL (0.00-0.22); BASOPHILS % (AUTO) 0.5 % (0.0-2.0); EOSINOPHILS # (AUTO) 0.1 K/uL (0-0.4); EOSINOPHILS % (AUTO) 1.1 % (0.0-4.0); HEMATOCRIT 36.8 % (36-48); LYMPHOCYTES # (AUTO) 1.2 K/uL (2.5-16.5); LYMPHOCYTES % (AUTO) 10.2 % (20.5-51.1); MEAN CORPUSCULAR HEMOGLOBIN 27 pg (27-31); MEAN CORPUSCULAR HGB CONC 33 g/dL (33-37); MEAN CORPUSCULAR VOLUME 83.7 fL (80-94); MONOCYTES # (AUTO) 0.9 K/uL (0.8-1.0); MONOCYTES % (AUTO) 7.8 % (1.7-9.3); NEUTROPHILS # (AUTO) 9.6 K/uL (1.8-7.7); NEUTROPHILS % (AUTO) 80.4 % (42.2-75.2); PLATELET COUNT (AUTO) 351 K/uL (140-450); RED CELL DISTRIBUTION WIDTH 15.2 % (11.6-13.7); WHITE BLOOD COUNT (AUTO) 11.9 K/uL (4.8-10.8)
--- NOTE | 2017-10-31 10:08 | NUR ---
SPOKE WITH DR. BERNABE ON THE PHONE, NEW ORDERS WERE RECEIVED.
--- NOTE | 2017-10-31 12:32 | NUR ---
PATIENT AWAKE, ALERT. RESPIRATION EVEN, UNLABOR ON ROOM AIR. SKIN DRY AND WARM. WOUND DRESSING WAS CHANGED PER ORDER. NO DISTRESS NOTED AT THIS TIME. CALL LIGHT WITHIN REACH
--- NOTE | 2017-10-31 14:56 | NUR ---
PATIENT AWAKE, ALERT. RESPIRATION EVEN, UNLABOR ON ROOM AIR. NO DISTRESS NOTED AT THIS TIME
[2017-10-31] MEDS ORDERED: LEVO750T2 PO (15:18)
[2017-10-31] MEDS ORDERED: METR250T2 PO (15:19)
[2017-10-31] MEDS ORDERED: DOCU-299 PO (15:20)
[2017-10-31] MEDS ORDERED: ACET-2863 PO (15:20)
--- NOTE | 2017-10-31 15:31 | NUR ---
SPOKE WITH DR. HUANG OVER THE PHONE. PATIENT IS OK TO BE DISCHARGED
[2017-10-31 16:00] VITALS: BP 139/70
--- NOTE | 2017-10-31 16:45 | NUR ---
DISCHARGE INSTRUCTION AND PRESCRIPTIONS WERE GIVEN AND EXPLAINED TO THE PATIENT. PATIENT VERBALIZED UNDERSTANDING. IV WAS REMOVED, CATHETER INTACT, NO ACTIVE BLEEDING SEEN. ID BAND WAS REMOVED. WOUND PICTURE WAS TAKEN.
--- NOTE | 2017-10-31 18:25 | NUR ---
PATIENT AWAKE, ALERT. RESPIRATION EVEN, UNLABOR ON ROOM AIR. NO DISTRESS NOTED AT THIS TIME
--- NOTE | 2017-10-31 19:15 | NUR ---
ALL BELONGINGS WERE TAKEN WITH THE PATIENT. PATIENT WAS ESCORTED OUT BY STAFF. PATIENT IS STABLE AT THIS TIME
== END 2017-10-31 19:18 | disposition home or self-care (01) | DRG 343 ==
LOC: MED 10:23 → MTU 13:46
PROVIDERS: ADMIT Internal Medicine Geriatric Medicine; ATTEND Internal Medicine Geriatric Medicine
PROC: 5A09357 Assistance with Respiratory Ventilation, Less than 24 Consecutive Hours, Continuous Positive Airway Pressure (ICD-10-PCS; 2017-10-27)
PROC: 0DTJ4ZZ Resection of Appendix, Percutaneous Endoscopic Approach (ICD-10-PCS; principal; 2017-10-27 20:45)
PROC: 5A09357 Assistance with Respiratory Ventilation, Less than 24 Consecutive Hours, Continuous Positive Airway Pressure (ICD-10-PCS; 2017-10-28)
DX: K35.80 Unspecified acute appendicitis (principal); I10 Essential (primary) hypertension; G47.33 Obstructive sleep apnea (adult) (pediatric); J44.9 Chronic obstructive pulmonary disease, unspecified; T37.8X5A Adverse effect of other specified systemic anti-infectives and antiparasitics, initial encounter; K66.0 Peritoneal adhesions (postprocedural) (postinfection); E11.9 Type 2 diabetes mellitus without complications; E66.01 Morbid (severe) obesity due to excess calories; K66.8 Other specified disorders of peritoneum; Z80.3 Family history of malignant neoplasm of breast; Z82.3 Family history of stroke; Z87.891 Personal history of nicotine dependence; Z90.13 Acquired absence of bilateral breasts and nipples; Z79.899 Other long term (current) drug therapy; Z88.5 Allergy status to narcotic agent; Z88.8 Allergy status to other drugs, medicaments and biological substances; Z90.49 Acquired absence of other specified parts of digestive tract; Z85.3 Personal history of malignant neoplasm of breast; Y92.89 Other specified places as the place of occurrence of the external cause; Z68.39 Body mass index [BMI] 39.0-39.9, adult; Z79.84 Long term (current) use of oral hypoglycemic drugs
CPT/HCPCS: 36415; 71045; 80048; 80053; 81003; 82948; 83036; 83690; 83735; 85025; 87081; 94640; 94660; 96365; 96375; 97116; 97140; 97530; 97535; 99285; J0330; J1170; J1815; J1885; J2001; J2175; J2250; J2405; J2543; J2704; J2710; J2765; J3480; J3490; J7030; J7060; J7120; J7620; Q0092

== ENCOUNTER 2018-02-17 12:21 | Inpatient (IN) | payer OTHER ==
[~2018-02-17] VITALS: Ht 157.5 cm; Wt 70.3 kg
[~2018-02-17 12:21] MED LIST changes: +ACET-2863 PO; +DOCU-299 PO; +LEVO750T2 PO; +METR250T2 PO
[2018-02-17 12:46] VITALS: BP 128/71
--- NOTE | 2018-02-17 12:51 | NUR ---
urine cup handed to pt
--- NOTE | 2018-02-17 12:55 | NUR ---
67/F BIB & SON c/o NAUSEA , rlq cramping pain non radiating x yesterday last bm last night no straining no blood in stool. denies dysuriahx---copd, htn, APPENDECTOMY. SKIN IS PINK/WARM/DRY; AAOX4 WITH EVEN AND STEADY GAIT; LUNGS CLEAR BL; HR EVEN AND REGULAR; PT DENIES ANY FEVER, CP, SOB, OR COUGH AT THIS TIME; PATIENT STATES PAIN OF 8/10 AT THIS TIME; VSS; PATIENT POSITIONED FOR COMFORT; HOB ELEVATED; BEDRAILS UP X2; BED DOWN. ER MADE AWARE OF PT STATUS. Addendum: 02/17/18 at 1336 [facility]OMY 2013
[2018-02-17 12:56] LABS: APPEARANCE,URINE CLEAR (CLEAR); BILIRUBIN,URINE NEGATIVE (NEGATIVE); BLOOD, URINE NEGATIVE (NEGATIVE); COLOR,URINE YELLOW (YELLOW); LEUKOCYTE ESTERASE ,URINE NEGATIVE (NEGATIVE); NITRITE, URINE NEGATIVE (NEGATIVE); UGLUCOSE NEGATIVE (NEGATIVE)
[2018-02-17] MEDS ORDERED: KETOROLAC 30 MG/ML VIAL IVP ONE (14:30)
[2018-02-17] MEDS ORDERED: NACL 0.9% 1,000 ML IV ONE (14:30)
[2018-02-17] MEDS ORDERED: ONDANSETRON 4 MG/2 ML VIAL IVP ONE (14:30)
[2018-02-17 14:46] LABS: BASOPHILS % (AUTO) 0.3 % (0.0-2.0); EOSINOPHILS # (AUTO) 0.1 K/uL (0-0.4); EOSINOPHILS % (AUTO) 0.9 % (0.0-4.0); HEMATOCRIT 39.7 % (36-48); HEMOGLOBIN 12.7 g/dL (12.0-16.0); LYMPHOCYTES # (AUTO) 1.9 K/uL (2.5-16.5); LYMPHOCYTES % (AUTO) 15.4 % (20.5-51.1); MEAN CORPUSCULAR HEMOGLOBIN 27 pg (27-31); MEAN CORPUSCULAR HGB CONC 32 g/dL (33-37); MEAN CORPUSCULAR VOLUME 85.4 fL (80-94); MONOCYTES # (AUTO) 0.6 K/uL (0.8-1.0); MONOCYTES % (AUTO) 4.8 % (1.7-9.3); NEUTROPHILS # (AUTO) 9.5 K/uL (1.8-7.7); NEUTROPHILS % (AUTO) 78.6 % (42.2-75.2); PLATELET COUNT (AUTO) 333 K/uL (140-450); RED BLOOD CELL COUNT(AUTO) 4.65 MIL/uL (4.20-5.40); RED CELL DISTRIBUTION WIDTH 15.2 % (11.6-13.7); WHITE BLOOD COUNT (AUTO) 12.1 K/uL (4.8-10.8)
--- NOTE | 2018-02-17 15:02 | NUR ---
LAB AT BEDSIDE
[2018-02-17 15:28] LABS: ALBUMIN 3.8 g/dL (3.4-5.0); CREATININE 0.9 mg/dL (0.6-1.3); TOTAL BILIRUBIN 0.6 mg/dL (0.0-1.0)
--- NOTE | 2018-02-17 15:40 | NUR ---
PT ARRIVED TO UNIT AT THIS TIME VIA GURNEY. RECEIVED BEDSIDE REPORT FROM [facility] ER NURSE.
--- NOTE | 2018-02-17 15:42 | NUR ---
Patient will be admitted to care of DR HUANG. Admited to [facility]. Will go to room 118A. Belongings list completed. Report to QIAN REINA .
[2018-02-17 16:00] VITALS: BP 126/53
--- NOTE | 2018-02-17 16:00 | NUR ---
MEDICAL HX OBTAINED FROM PT. PT ORIENTED TO ROOM & UNIT. ABLE TO VERBALIZE UNDERSTANDING. PT C/O 12/17 PAIN TO RIGHT UPPER ABD, STATES TORADAL GIVEN FROM ER IS INEFFECTIVE. ABD SOFT WITH ACTIVE BOWEL SOUNDS ON ALL QUADS. PT STATES SHE USED TO TAKE NORCO AFTER HER APPENDECTOMY & HAD NO ADVERSE/ALLERGIC REACTIONS. DR. HUANG PAGECarlito & AWAITING CALL BACK.
--- NOTE | 2018-02-17 16:30 | NUR ---
SPOKE TO DR HUANG ON THE PHONE RE: PT'S C/O PAIN & REQUEST TO HAVE NORCO. DR HUANG OK'D TO GIVE NORCO 7.5MG/325MG PO Q4H PRN FOR SEVERE PAIN. NOTED & CARRIED OUT.
[2018-02-17] MEDS: HYDROcodone/APAP 7.5/325 MG 1 TAB PO PRN ×2 (16:51→21:33)
[2018-02-17] MEDS: POTASSIUM CHL 20 MEQ/D5-1/2NS 1,000 ML IV SCH (16:52)
--- NOTE | 2018-02-17 18:40 | NUR ---
DR HUANG CAME IN TO SEE PATIENT.
--- NOTE | 2018-02-17 19:20 | NUR ---
BEDSIDE REPORT GIVEN TO PM SHIFT NURSE.
--- NOTE | 2018-02-17 19:21 | NUR ---
RECD. RESTING IN BED, SLEEPING BUT EASILY WAKES UP, A/OX4. RESPIRATION EVEN AND UNLABORED. IV OF D51/2 NS +20 MEQ KCL INFUSING AT 75 ML/HR, LEFT HAND G22. PLAN OF CARE FOR THE SHIFT DISCUSSED. VERBALIZED UNDERSTANDING. PAIN IN THE ABDOMEN 05/19, WAS MEDICATED BY AM NURSE, WILL CONTINUE TO MONITOR PAIN AND MEDICATE ORDERED. FAMILY AT THE BEDSIDE.
--- NOTE | 2018-02-17 20:00 | NUR ---
Patient's Plan of Care was discussed and reviewed with FREIGHT CLERK: MAGDY, WILL CONTINUE WITH CURRENT POC.
[2018-02-17] MEDS: PIPER/TAZO 3.375GM/D5W PREMIX 50 ML IV SCH (21:42)
--- NOTE | 2018-02-17 21:50 | NUR ---
DR. BERNABE CAME AND CHECKED PATIENT. ORDERED TORADOL FOR MODERATE PAIN AND SMALL BOWEL FOLLOW THROUGH (RD) IN AM.
--- NOTE | 2018-02-18 | NUR ---
SLEEPING COMFORTABLY IN BED.
[2018-02-18 00:31] VITALS: BP 98/49
--- NOTE | 2018-02-18 03:00 | NUR ---
STILL SLEEPING COMFORTABLY.
[2018-02-18] MEDS: KETOROLAC 30 MG/ML VIAL IVP PRN ×2 (04:36→12:38)
[2018-02-18] MEDS: POTASSIUM CHL 20 MEQ/D5-1/2NS 1,000 ML IV SCH ×2 (04:38→18:24)
[2018-02-18] MEDS: PIPER/TAZO 3.375GM/D5W PREMIX 50 ML IV SCH ×2 (04:50→12:42)
--- NOTE | 2018-02-18 05:57 | NUR ---
AWAKE, MINING SUPPORT WORKER CAME FOR AM BLOOD DRAW.
--- NOTE | 2018-02-18 06:02 | NUR ---
APPLIED BILATERAL LEG SEQUENTIALS.
[2018-02-18 06:56] LABS: BASOPHILS % (AUTO) 0.2 % (0.0-2.0); EOSINOPHILS # (AUTO) 0.1 K/uL (0-0.4); EOSINOPHILS % (AUTO) 0.7 % (0.0-4.0); HEMATOCRIT 38.2 % (36-48); LYMPHOCYTES # (AUTO) 1.2 K/uL (2.5-16.5); LYMPHOCYTES % (AUTO) 8.9 % (20.5-51.1); MEAN CORPUSCULAR HEMOGLOBIN 27 pg (27-31); MEAN CORPUSCULAR HGB CONC 32 g/dL (33-37); MEAN CORPUSCULAR VOLUME 86.7 fL (80-94); MONOCYTES # (AUTO) 0.8 K/uL (0.8-1.0); MONOCYTES % (AUTO) 5.9 % (1.7-9.3); NEUTROPHILS % (AUTO) 84.3 % (42.2-75.2); PLATELET COUNT (AUTO) 298 K/uL (140-450); RED BLOOD CELL COUNT(AUTO) 4.41 MIL/uL (4.20-5.40); RED CELL DISTRIBUTION WIDTH 15.5 % (11.6-13.7); WHITE BLOOD COUNT (AUTO) 13.1 K/uL (4.8-10.8)
[2018-02-18 07:10] LABS: ANION GAP 6.9 (8-16); CARBON DIOXIDE 26.5 mmol/L (21-32); CREATININE 2.2 mg/dL (0.6-1.3); POTASSIUM 4.4 mmol/L (3.5-5.1)
--- NOTE | 2018-02-18 07:15 | NUR ---
CONDITION REMAIN STABLE. ENDORSED TO LATOSHA NICE FOR CONTINUITY OF CARE.
--- NOTE | 2018-02-18 07:30 | NUR ---
RECEIVED ON BED AAOX4. NO SOB NOTED. NO C/O PAIN AT THIS TIME. IV TO LT HAND PATENT AND INTACT. CHEST CLEAR. ABDOMEN SOFT, BOWEL SOUNDS PRESENT, PT STATED SHE HAS BEEN PASSING GAS. NO EDEMA NOTED. NPO MAINTAINED ORDERED. INSTRUCTED PT TO CALL FOR ASSISTANCE, CALL LIGHT WITHIN REACH. PT VERBALIZED UNDERSTANDING.
[2018-02-18 08:00] VITALS: BP 92/50
--- NOTE | 2018-02-18 08:06 | NUR ---
PATIENT HAS BEEN SCREENED AND CATEGORIZED MODERATE NUTRITION RISK. PATIENT WILL BE SEEN WITHIN 3-5 DAYS OF ADMISSION. 02/20/18 02/22/[address]
[2018-02-18] MEDS: LOSARTAN 50 MG TAB PO SCH (09:00)
[2018-02-18] MEDS: CITALOPRAM 20 MG TAB PO SCH (09:17)
--- NOTE | 2018-02-18 09:18 | NUR ---
SMALL BOWEL FOLLOW THROUGH ON GOING AT THE BEDSIDE.
--- NOTE | 2018-02-18 12:55 | NUR ---
PT RESTING. NO SOB NOTED. PAIN SUBSIDING PER PT. NPO MAINTAINED.
--- NOTE | 2018-02-18 15:45 | NUR ---
SBFT RESULTS RELAYED BY PRICING CONSULTANT NURSE ANTWON TO DR. HUANG, DR. FLORECITA HARRISON WELL, AWAITING FOR CALL BACK.
[2018-02-18 16:00] VITALS: BP 100/46
--- NOTE | 2018-02-18 17:58 | NUR ---
SPOKE WITH DR. BERNABE ON THE PHONE, SBFT RESULTS RELAYED TO MD. NEW ORDERS FOR DIET GIVEN.
--- NOTE | 2018-02-18 18:15 | NUR ---
PT TOLERATED CLEAR LIQUID DIET, NO N&V NOTED. NO C/O SLIGHT ABD PAIN, PER PT FROM BEING HUNGRY.
--- NOTE | 2018-02-18 19:00 | NUR ---
PT AWAKE, WATCHING TV. NO SOB NOTED. NO COMPLAINTS MADE. WILL ENDORSE TO NEXT SHIFT NURSE FOR CONTINUITY OF CARE.
--- NOTE | 2018-02-18 19:15 | NUR ---
RECEIVED REPORT FROM DAY SHIFT RN, FOR CONTINUITY OF CARE. PT IS A/OX4, ON ROOM AIR. PT IS ABLE TO MAKE NEEDS KNOWN, ABLE TO FOLLOW COMMANDS. PT BREATHS EQUAL AND UNLABORED. PT SKIN IS INTACT. PT AMBULATES WITH STEADY GAIT. PT HAS A 22G IV TO LEFT HAND, ASYMPTOMATIC AND INTACT. DISCUSSED PLAN OF CARE WITH PT, PT VERBALIZED UNDERSTANDING. VITAL SIGNS WITHIN NORMAL LIMITS. PT STABLE, NO SIGNS OF DISTRESS NOTED AT THIS TIME. BED IN LOWEST POSITION, BED ALARM ON. CALL LIGHT WITHIN REACH, WILL CONTINUE TO MONITOR.
[2018-02-18] MEDS: HYDROcodone/APAP 7.5/325 MG 1 TAB PO PRN (19:55)
[2018-02-18] MEDS: NACL 0.9% 1,000 ML IV SCH (19:55)
--- NOTE | 2018-02-18 19:57 | NUR ---
PT C/O 12/17 ABDOMINAL PAIN, ADMINISTERED NORCO ORDERED FOR PAIN, PT TOLERATED WELL. ALSO CHANGED FLUIDS AND STARTED ROCEPHIN INFUSION.
[2018-02-18] MEDS: metroNIDAZOLE 500 MG/NS PREMIX 100 ML IV SCH (21:01)
[2018-02-18 22:00] LABS: ANION GAP 9.7 (8-16); CARBON DIOXIDE 27.5 mmol/L (21-32); CREATININE 2.4 mg/dL (0.6-1.3); POTASSIUM 4.2 mmol/L (3.5-5.1)
[2018-02-19] VITALS: BP 104/53
--- NOTE | 2018-02-19 | NUR ---
VITAL SIGNS WITHIN NORMAL LIMITS. PT STABLE, NO SIGNS OF DISTRESS NOTED AT THIS TIME. BED IN LOWEST POSITION, BED ALARM ON. CALL LIGHT WITHIN REACH, WILL CONTINUE TO MONITOR.
[2018-02-19] MEDS: HYDROcodone/APAP 7.5/325 MG 1 TAB PO PRN ×3 (02:00→20:39)
--- NOTE | 2018-02-19 04:00 | NUR ---
PT STABLE, NO SIGNS OF DISTRESS NOTED AT THIS TIME. BED IN LOWEST POSITION, BED ALARM ON. CALL LIGHT WITHIN REACH, WILL CONTINUE TO MONITOR.
[2018-02-19] MEDS: NACL 0.9% 1,000 ML IV SCH ×2 (04:17→16:56)
[2018-02-19] MEDS: metroNIDAZOLE 500 MG/NS PREMIX 100 ML IV SCH ×3 (05:39→20:46)
[2018-02-19] MEDS: POTASSIUM CHL 20 MEQ/D5-1/2NS 1,000 ML IV SCH ×2 (05:41→20:15)
[2018-02-19 07:17] LABS: ANION GAP 12.1 (8-16); CARBON DIOXIDE 25.9 mmol/L (21-32); CREATININE 1.8 mg/dL (0.6-1.3); TOTAL BILIRUBIN 0.7 mg/dL (0.0-1.0)
[2018-02-19 07:18] LABS: ALBUMIN 2.8 g/dL (3.4-5.0)
--- NOTE | 2018-02-19 07:47 | NUR ---
ENDORSED PT TO DAY SHIFT RN FOR CONTINUITY OF CARE. PT IN STABLE CONDITION.
--- NOTE | 2018-02-19 07:48 | NUR ---
RECEIVED REPORT FROM ELECTRONIC SCALE SUBASSEMBLER NURSE. PT LAYING IN BED AWAKE WATCHING TV. RESPIRATIONS EVEN AND UNLABORED, NO DISTRESS NOTED. PT REPORTS HAVING [employer] BOWEL MOVEMENT AROUND 0100 TODAY. IV SITE INTACT PATENT ON SALINE LOCK. A/A/OX4. CALM COOPERATIVE. SKIN INTACT. REVIEWED PLAN OF CARE WITH PT, PT VERBALIZED UNDERSTANDING. SAFETY MEASURES IN PLACE, CALL LIGHT WITHIN REACH. WILL CONTINUE TO MONITOR.
[2018-02-19 07:49] LABS: BASOPHILS % (AUTO) 0.3 % (0.0-2.0); EOSINOPHILS # (AUTO) 0.2 K/uL (0-0.4); EOSINOPHILS % (AUTO) 1.5 % (0.0-4.0); HEMATOCRIT 36.5 % (36-48); HEMOGLOBIN 11.5 g/dL (12.0-16.0); LYMPHOCYTES # (AUTO) 1.7 K/uL (2.5-16.5); LYMPHOCYTES % (AUTO) 12.3 % (20.5-51.1); MEAN CORPUSCULAR HEMOGLOBIN 28 pg (27-31); MEAN CORPUSCULAR HGB CONC 32 g/dL (33-37); MONOCYTES % (AUTO) 7.4 % (1.7-9.3); NEUTROPHILS % (AUTO) 78.5 % (42.2-75.2); PLATELET COUNT (AUTO) 284 K/uL (140-450); RED CELL DISTRIBUTION WIDTH 15.7 % (11.6-13.7); WHITE BLOOD COUNT (AUTO) 14.1 K/uL (4.8-10.8)
[2018-02-19 08:00] VITALS: BP 110/55
[2018-02-19] MEDS: LOSARTAN 50 MG TAB PO SCH (09:00)
[2018-02-19] MEDS: CITALOPRAM 20 MG TAB PO SCH (10:12)
--- NOTE | 2018-02-19 10:15 | NUR ---
PATIENT COMPLAINS OF PAIN, NORCO GIVEN PER ORDERS. OTHER SCHEDULED MEDICATIONS DUE GIVEN. WILL CONTINUE TO MONITOR.
--- NOTE | 2018-02-19 13:00 | NUR ---
PATIENT SITTING IN WATCHING TV. NO DISTRESS NOTED. DENIES ANY PAIN. CONDITION UNCHANGED. WILL CONTINUE TO MONITOR.
--- NOTE | 2018-02-19 15:00 | NUR ---
PATIENT LYING DOWN IN BED PLAYING ON HER PHONE. NO DISTRESS NOTED. CONDITION UNCHANGED. WILL CONTINUE TO MONITOR.
[2018-02-19 16:00] VITALS: BP 127/65
[2018-02-19] MEDS ORDERED: NACL 0.9% 500 ML IV SCH (16:40)
--- NOTE | 2018-02-19 18:15 | NUR ---
PATIENT SITTING IN BED TALKING TO FAMILY MEMBERS AT BEDSIDE. NO DISTRESS NOTED. WILL CONTINUE TO MONITOR.
--- NOTE | 2018-02-19 19:36 | NUR ---
GAVE REPORT TO SECURITY SYSTEMS SALES REPRESENTATIVE NURSE FOR CONTINUITY OF CARE. PATIENT IN STABLE CONDITION.
--- NOTE | 2018-02-19 19:37 | NUR ---
RECEIVED PT FROM BERT REINA PT IS AAOX4 AMBULATORY, IV ON LEFT ARM INFUSING WELL NOT DISTRESS NOTED DENIES ANY ABD PAIN AT THISTIME, RELATIVES AT BED SIDE
[2018-02-19 20:00] VITALS: BP 114/62
--- NOTE | 2018-02-19 21:40 | NUR ---
AFTER PAIN MEDIC GIVEN PT SLEEPS QUIET NOT D SIGNS OF PAIN NOTED
[2018-02-20] VITALS: BP 115/61
--- NOTE | 2018-02-20 | NUR ---
PT VOIDING WELL DENIES ANY PAIN REMAIN STABLE AT THIS TIME REPOSITIONED HERSELF NOT DISTRESS NOTED
[2018-02-20] MEDS: NACL 0.9% 1,000 ML IV SCH ×3 (03:00→21:52)
--- NOTE | 2018-02-20 04:00 | NUR ---
SPONGE BATH GIVEN LINEN CHANGED IV ON LEFT HAND INFUSING WELL NOT DISTRESS NOTED.
[2018-02-20] MEDS: metroNIDAZOLE 500 MG/NS PREMIX 100 ML IV SCH ×3 (05:07→21:59)
[2018-02-20] MEDS: HYDROcodone/APAP 7.5/325 MG 1 TAB PO PRN ×3 (05:14→23:26)
--- NOTE | 2018-02-20 06:30 | NUR ---
AFTER PAIN MEDIC GIVEN PT IS SLEEPING QUIET NOT DISTRESS NOTE
--- NOTE | 2018-02-20 07:30 | NUR ---
RECEIVED REPORT FROM NIGHT NURSE. PT LAYING IN BED SLEEPING. RESPIRATIONS EVEN AND UNLABORED. IV SITE INTACT, PATENT. SKIN DRY AND INTACT. REVIEWED CARE PLAN WITH PT, PT UNDERSTOOD CARE PLAN REVIEWED. SAFETY MEASURES IN PLACE. CALL LIGHT AT BEDSIDE. WILL CONTINUE TO MONITOR.
[2018-02-20 08:00] VITALS: BP 127/69
[2018-02-20 08:18] LABS: BASOPHILS % (AUTO) 0.3 % (0.0-2.0); EOSINOPHILS # (AUTO) 0.2 K/uL (0-0.4); EOSINOPHILS % (AUTO) 1.8 % (0.0-4.0); HEMATOCRIT 34.7 % (36-48); HEMOGLOBIN 10.9 g/dL (12.0-16.0); LYMPHOCYTES # (AUTO) 1.8 K/uL (2.5-16.5); LYMPHOCYTES % (AUTO) 14.3 % (20.5-51.1); MEAN CORPUSCULAR HEMOGLOBIN 27 pg (27-31); MEAN CORPUSCULAR HGB CONC 31 g/dL (33-37); MEAN CORPUSCULAR VOLUME 86.6 fL (80-94); MONOCYTES # (AUTO) 0.8 K/uL (0.8-1.0); MONOCYTES % (AUTO) 6.3 % (1.7-9.3); NEUTROPHILS # (AUTO) 9.7 K/uL (1.8-7.7); NEUTROPHILS % (AUTO) 77.3 % (42.2-75.2); PLATELET COUNT (AUTO) 297 K/uL (140-450); RED BLOOD CELL COUNT(AUTO) 4.01 MIL/uL (4.20-5.40); RED CELL DISTRIBUTION WIDTH 15.4 % (11.6-13.7); WHITE BLOOD COUNT (AUTO) 12.6 K/uL (4.8-10.8)
[2018-02-20 08:45] LABS: ALBUMIN 2.7 g/dL (3.4-5.0); ANION GAP 11.8 (8-16); CARBON DIOXIDE 27.1 mmol/L (21-32); POTASSIUM 3.9 mmol/L (3.5-5.1); TOTAL BILIRUBIN 0.3 mg/dL (0.0-1.0)
[2018-02-20] MEDS: LOSARTAN 50 MG TAB PO SCH (09:00)
[2018-02-20] MEDS: CITALOPRAM 20 MG TAB PO SCH (09:06)
[2018-02-20] MEDS: POTASSIUM CHL 20 MEQ/D5-1/2NS 1,000 ML IV SCH (09:11)
--- NOTE | 2018-02-20 09:12 | NUR ---
PATIENT SITTING IN BED COMFORTABLY. DENIES ANY PAIN. SCHEDULED MEDICATIONS DUE GIVEN. POTASSIUM IN D5 NS NOT GIVEN PER DR. HUANG VERBAL ORDERS TO RUN NS @100 ML/HR FOR IVF. WILL CONTINUE TO MONITOR.
--- NOTE | 2018-02-20 11:50 | NUR ---
PATIENT SITTING IN BED WATCHING TV. NO DISTRESS NOTED. DENIES ANY PAIN. CONDITION UNCHANGED. WILL CONTINUE TO MONITOR.
--- NOTE | 2018-02-20 13:12 | NUR ---
PT LYING IN BED WATCHING TV. SCHEDULED MEDICATION GIVEN. WILL CONTINUE TO MONITOR.
--- NOTE | 2018-02-20 15:30 | NUR ---
PATIENT SITTING IN BED TALKING WITH AT BEDSIDE. NO DISTRESS NOTED. CONDITION UNCHANGED. WILL CONTINUE TO MONITOR.
[2018-02-20 16:00] VITALS: BP 115/57
--- NOTE | 2018-02-20 17:00 | NUR ---
DR. HUANG AT BEDSIDE REVIEWING PLAN OF CARE WITH PATIENT. WILL CONTINUE TO MONITOR.
--- NOTE | 2018-02-20 19:30 | NUR ---
GAVE PT REPORT TO NIGHT NURSE. PT IN STABLE POSITION
--- NOTE | 2018-02-20 19:30 | NUR ---
RECEIVED BEDSIDE REPORT FROM DAY SHIFT NURSE BERT PT IN BED NO SIGNS OF ACUTE DISTRESS, FAMILY AT BEDSIDE. IV IN LEFT HAND 22G INFUSING NS AT 75 ML/HR. IV SITE IS DRY AND INTACT. PT DENIES PAIN AT THIS TIME. ABDOMEN IS DISTENDED AND FIRM, BOWEL SOUNDS PRESENT. LUNGS ARE CLEAR, HEART SOUNDS NORMAL, V/S WITHIN PATIENTS BASELINE. WILL CONTINUE TO MONITOR, EXPLAINED PLAN OF CARE, CALL LIGHT WITHIN REACH.
--- NOTE | 2018-02-20 21:30 | NUR ---
DUE ANTIBIOTIC GIVEN, QUESTIONS ANSWERED, CALL LIGHT WITHIN REACH, WILL CONTINUE TO MONITOR.
--- NOTE | 2018-02-20 23:26 | NUR ---
PT C/O PAIN IN ABDOMEN, 10/17, WILL MEDICATE ACCORDING TO MD ORDER.
[2018-02-21] VITALS: BP 125/59
--- NOTE | 2018-02-21 00:59 | NUR ---
PT RESTING IN BED NO SIGNS OF DISTRESS, CALL LIGHT WITHIN REACH, WILL CONTINUE TO MONITOR.
--- NOTE | 2018-02-21 03:30 | NUR ---
PT RESTING IN BED ON PHONE, DENIES PAIN AT THIS TIME, WILL CONTINUE TO MONITOR.
[2018-02-21] MEDS: metroNIDAZOLE 500 MG/NS PREMIX 100 ML IV SCH (04:30)
[2018-02-21] MEDS: HYDROcodone/APAP 7.5/325 MG 1 TAB PO PRN (04:30)
--- NOTE | 2018-02-21 04:30 | NUR ---
PT C/O PAIN IN ABDOMEN MEDICATED WITH NORCO ACCORDING TO MD ORDER.
--- NOTE | 2018-02-21 06:00 | NUR ---
PT RESTING IN BED NO SIGNS OF DISTRESS. WILL CONTINUE TO MONITOR.
--- NOTE | 2018-02-21 07:30 | NUR ---
RECEIVED REPORT FROM LIAISON ENGINEER NURSE. PT IS AWAKE, RESTING IN BED, SEMI FOWLERS POSITION, PT HAS IV ON THE LEFT HAND, PATENT, INTACT, FLUSHING WELL, PT SKIN IS INTACT, NO S/S OF RESPIRATORY DISTRESS OR DISCOMFORT NOTED, PT IS ON ROOM AIR, DISCUSSED PLAN OF CARE WITH PT, PT VERBALIZED UNDERSTANDING, SAFETY/FALL PRECAUTIONS ARE IN PLACE, CALL LIGHT IS WITHIN REACH, WILL CONTINUE TO MONITOR.
--- NOTE | 2018-02-21 07:30 | NUR ---
PT IN BED, NO SIGNS OF PAIN. ENDORSED PT TO DAY SHIFT NURSE GUILLERMO. PT STABLE.
[2018-02-21 07:47] LABS: BASOPHILS % (AUTO) 0.3 % (0.0-2.0); EOSINOPHILS # (AUTO) 0.3 K/uL (0-0.4); EOSINOPHILS % (AUTO) 2.5 % (0.0-4.0); HEMATOCRIT 32.5 % (36-48); HEMOGLOBIN 10.3 g/dL (12.0-16.0); LYMPHOCYTES # (AUTO) 2.1 K/uL (2.5-16.5); LYMPHOCYTES % (AUTO) 17.9 % (20.5-51.1); MEAN CORPUSCULAR HEMOGLOBIN 27 pg (27-31); MEAN CORPUSCULAR HGB CONC 32 g/dL (33-37); MEAN CORPUSCULAR VOLUME 86.7 fL (80-94); MONOCYTES # (AUTO) 0.8 K/uL (0.8-1.0); MONOCYTES % (AUTO) 6.8 % (1.7-9.3); NEUTROPHILS # (AUTO) 8.3 K/uL (1.8-7.7); NEUTROPHILS % (AUTO) 72.5 % (42.2-75.2); PLATELET COUNT (AUTO) 310 K/uL (140-450); RED BLOOD CELL COUNT(AUTO) 3.75 MIL/uL (4.20-5.40); RED CELL DISTRIBUTION WIDTH 15.5 % (11.6-13.7); WHITE BLOOD COUNT (AUTO) 11.5 K/uL (4.8-10.8)
[2018-02-21 08:00] VITALS: BP 103/53
[2018-02-21 08:38] LABS: ALBUMIN 2.6 g/dL (3.4-5.0); ANION GAP 6.7 (8-16); CARBON DIOXIDE 26.9 mmol/L (21-32); CREATININE 0.8 mg/dL (0.6-1.3); POTASSIUM 3.6 mmol/L (3.5-5.1); TOTAL BILIRUBIN 0.2 mg/dL (0.0-1.0)
[2018-02-21] MEDS: CITALOPRAM 20 MG TAB PO SCH (08:47)
[2018-02-21] MEDS: LOSARTAN 50 MG TAB PO SCH (08:49)
--- NOTE | 2018-02-21 09:00 | NUR ---
PT RESTING IN BED, NO S/S OF RESPIRATORY DISTRESS OR DISCOMFORT NOTED, CALL LIGHT WITHIN REACH.
[2018-02-21] MEDS: NACL 0.9% 1,000 ML IV SCH (11:12)
--- NOTE | 2018-02-21 12:30 | NUR ---
DISCHARGE INSTRUCTIONS GIVEN, IV REMOVED, CATHETER TIP INTACT, ID WRIST BAND REMOVED. PT STABLE UPON DISCHARGE ACCOMPANIED BY HER .
[2018-02-23 14:25] LABS: BASOPHILS % (AUTO) 0.4 % (0.0-2.0); EOSINOPHILS # (AUTO) 0.1 K/uL (0-0.4); EOSINOPHILS % (AUTO) 0.9 % (0.0-4.0); HEMATOCRIT 35.6 % (36-48); HEMOGLOBIN 11.2 g/dL (12.0-16.0); LYMPHOCYTES # (AUTO) 1.8 K/uL (2.5-16.5); LYMPHOCYTES % (AUTO) 16.5 % (20.5-51.1); MEAN CORPUSCULAR HEMOGLOBIN 27 pg (27-31); MEAN CORPUSCULAR HGB CONC 32 g/dL (33-37); MEAN CORPUSCULAR VOLUME 86.2 fL (80-94); MONOCYTES # (AUTO) 0.7 K/uL (0.8-1.0); MONOCYTES % (AUTO) 6.3 % (1.7-9.3); NEUTROPHILS # (AUTO) 8.5 K/uL (1.8-7.7); NEUTROPHILS % (AUTO) 75.9 % (42.2-75.2); PLATELET COUNT (AUTO) 392 K/uL (140-450); RED BLOOD CELL COUNT(AUTO) 4.14 MIL/uL (4.20-5.40); WHITE BLOOD COUNT (AUTO) 11.1 K/uL (4.8-10.8)
[2018-02-23 15:12] LABS: ANION GAP 8.2 (8-16); CARBON DIOXIDE 29.4 mmol/L (21-32); CREATININE 0.9 mg/dL (0.6-1.3); POTASSIUM 3.6 mmol/L (3.5-5.1); TOTAL BILIRUBIN 0.3 mg/dL (0.0-1.0)
== END 2018-02-21 12:30 | disposition home or self-care (01) | DRG 392 ==
LOC: MED 12:21 → MTU 14:59
PROVIDERS: ADMIT Internal Medicine Geriatric Medicine; ATTEND Internal Medicine Geriatric Medicine
DX: K52.9 Noninfective gastroenteritis and colitis, unspecified (principal); N17.9 Acute kidney failure, unspecified; E46 Unspecified protein-calorie malnutrition; K56.609 Unspecified intestinal obstruction, unspecified as to partial versus complete obstruction; J44.9 Chronic obstructive pulmonary disease, unspecified; I10 Essential (primary) hypertension; D72.829 Elevated white blood cell count, unspecified; E11.9 Type 2 diabetes mellitus without complications; D64.9 Anemia, unspecified; Z68.28 Body mass index [BMI] 28.0-28.9, adult; Z88.6 Allergy status to analgesic agent; Z90.13 Acquired absence of bilateral breasts and nipples
CPT/HCPCS: 36415; 74250; 80048; 80053; 81003; 82607; 82728; 82746; 83036; 83540; 84134; 85025; 87040; 87070; 87081; 87205; 96374; 96375; 99285; J0696; J1885; J2405; J2543; J3490; J7030; J7060; Q0092

== ENCOUNTER 2018-02-23 14:00 | Outpatient (CLI) | payer OTHER ==
[~2018-02-23 14:00] MED LIST changes: -ACET-2863 PO; +HYDR-5123 PO
[2018-03-10 15:09] LABS: HEMATOCRIT 35.6 % (36-48); HEMOGLOBIN 11.2 g/dL (12.0-16.0); LYMPHOCYTES % (AUTO) 16.5 % (20.5-51.1); MEAN CORPUSCULAR HEMOGLOBIN 27 pg (27-31); MEAN CORPUSCULAR HGB CONC 32 g/dL (33-37); MEAN CORPUSCULAR VOLUME 86.2 fL (80-94); NEUTROPHILS % (AUTO) 75.9 % (42.2-75.2); PLATELET COUNT (AUTO) 392 K/uL (140-450); RED BLOOD CELL COUNT(AUTO) 4.14 MIL/uL (4.20-5.40); WHITE BLOOD COUNT (AUTO) 11.1 K/uL (4.8-10.8)
[2018-03-10 15:10] LABS: BASOPHILS % (AUTO) 0.4 % (0.0-2.0); EOSINOPHILS # (AUTO) 0.1 K/uL (0-0.4); EOSINOPHILS % (AUTO) 0.9 % (0.0-4.0); LYMPHOCYTES # (AUTO) 1.8 K/uL (2.5-16.5); MONOCYTES # (AUTO) 0.7 K/uL (0.8-1.0); MONOCYTES % (AUTO) 6.3 % (1.7-9.3); NEUTROPHILS # (AUTO) 8.5 K/uL (1.8-7.7); POTASSIUM 3.6 mmol/L (3.5-5.1)
[2018-03-10 15:11] LABS: ANION GAP 8.2 (8-16); CARBON DIOXIDE 29.4 mmol/L (21-32); CHLORIDE 106 mmol/L (98-107); CREATININE 0.9 mg/dL (0.6-1.3); GFR ARICAN-AMERICAN 81 mL/min (>90); GLUCOSE 102 mg/dL (74-106); UREA NITROGEN, BLOOD 8 mg/dL (7-18)
[2018-03-10 15:12] LABS: IRON, SERUM 34 ug/dl (35-150); TOTAL BILIRUBIN 0.3 mg/dL (0.0-1.0)
[2018-03-10 15:13] LABS: ASPARTATE AMINOTRANSFERASE 68 U/L (15-37)
[2018-03-10 15:17] LABS: SODIUM SERUM 140 mmol/L (136-145)
[2018-03-10 15:19] LABS: FERRITIN 198 ng/mL (15 - 150); FOLIC ACID > 20.00 ng/mL (>3.0)
== END 2018-02-23 15:00 | disposition home or self-care (01) ==
LOC: MLB 14:00
PROVIDERS: ATTEND Internal Medicine Geriatric Medicine
DX: D64.9 Anemia, unspecified (principal); R74.0 Nonspecific elevation of levels of transaminase and lactic acid dehydrogenase [LDH]
CPT/HCPCS: 36415; 80053; 82607; 82728; 82746; 83540; 85025

== ENCOUNTER 2018-09-08 15:18 | Emergency (ER) | payer OTHER ==
[~2018-09-08] VITALS: Ht 157.5 cm; Wt 95.3 kg
--- NOTE | 2018-09-08 15:20 | NUR ---
PATIENT AMBULATED TO BED 10.
[2018-09-08 15:33] VITALS: BP 136/75
--- NOTE | 2018-09-08 15:41 | NUR ---
PT BIB SELF C/O SHAKEYNESS/FEELING COLD, AND ABD PAIN. PT REPORTS ABD PAIN STARTING THIS MORNING IN RUQ AT 5/10. PT DENIES DIARRHEA, LAST BM THIS MORNING. PT TEMPERATURE IS 100.7 ORAL. PT REPORTS N/V, STATING THAT SHE VOMITED UP HER COFFEE. BS 101. VSS. ER TO SEE PT. MEDHX:RT BREAST CANCER, HTN, COPD
[2018-09-08] MEDS ORDERED: BUDE1AER IH (15:48)
[2018-09-08] MEDS ORDERED: LOSA50TA66 PO (15:48)
[2018-09-08] MEDS ORDERED: MULT-153 PO (15:48)
[2018-09-08] MEDS ORDERED: HYDR-133 PO (15:48)
[2018-09-08] MEDS ORDERED: ALBUTEROL SULFATE/IPRATROPIU 3 ML SOL IH ONE (15:50)
[2018-09-08] MEDS ORDERED: predniSONE 20 MG TAB PO ONE (15:50)
[2018-09-08] MEDS ORDERED: ALBUTEROL 0.083% 2.5 MG/3 ML NEBU INH ONE (15:50)
[2018-09-08] MEDS ORDERED: ONDANSETRON 4 MG/2 ML VIAL IVP ONE (15:55)
[2018-09-08] MEDS ORDERED: NACL 0.9% 1,000 ML IV ONE ×2 (15:55→17:15)
--- NOTE | 2018-09-08 15:55 | NUR ---
DR. MCKENNA AWARE OF VOMITING
--- NOTE | 2018-09-08 15:55 | NUR ---
PATIENT VOMITTED SMALL AMT.
--- NOTE | 2018-09-08 15:56 | NUR ---
CALLED FOR HHN TREATMENT. PATIENT STATES THAT SHE IS SHAKEY AND BEGAN VOMITING. ADVISED THAT PATIENT IS VOMITING. DR ADVISED PT WILL BE GIVEN ZOFRAN AND TO RETURN LATER TO POSSIBLY GIVE HHN TREATMENT.
[2018-09-08] MEDS ORDERED: ACETAMINOPHEN EXTRA STRENGTH 500 MG TAB PO ONE (16:15)
--- NOTE | 2018-09-08 16:20 | NUR ---
TEMP. [address] MCKENNA MADE AWARE. PATIENT MEDICATED WITH 1 GM. TYLENOL P.O
[2018-09-08] MEDS ORDERED: ACETAMINOPHEN EXTRA STRENGTH 500 MG TAB ONE (16:23)
--- NOTE | 2018-09-08 17:00 | NUR ---
PT IN BED, STATES SHE HAS INTERMITENT ABD PAIN IN RUQ, STATING "IT FEELS LIKE MY STOMACH IS CHURNING IN ITS JUICES". PT REPORTS SLIGHT NAUSEA, STATES THAT ZOFRAN HELPED. PT TACHYCARDIC, 02 SAT AT 93%. PT TOLERATING FLUIDS WELL, NO EDEMA, LUNG SOUNDS CLEAR.
[2018-09-08 18:36] VITALS: BP 97/43
--- NOTE | 2018-09-08 18:36 | NUR ---
Patient discharged with v/s stable. Written and verbal after care instructions given and explained. Patient alert, oriented and verbalized understanding of instructions. Ambulatory with steady gait. All questions addressed prior to discharge. ID band removed. Patient advised to follow up with PMD. Rx of MOTRIN, PRILOSEC, AND ZOFRAN given. Patient educated on indication of medication including possible reaction and side effects. Opportunity to ask questions provided and answered. Addendum: 09/08/18 at 1839 by RUTHIE PT HYPOTENSIVE AT 97/43, RANDALL LE MADE AWARE, PT CHOSE TO GO HOME WHEN GIVEN THE OPTION TO GO HOME OR HAVE ANOTHER BOLUS
== END 2018-09-08 18:36 | disposition home or self-care (01) ==
LOC: MED 15:18
DX: R10.13 Epigastric pain (principal); R11.2 Nausea with vomiting, unspecified; R51 Headache; J44.9 Chronic obstructive pulmonary disease, unspecified; I10 Essential (primary) hypertension; Z90.49 Acquired absence of other specified parts of digestive tract; Z85.3 Personal history of malignant neoplasm of breast; Z98.890 Other specified postprocedural states; Z79.899 Other long term (current) drug therapy; Z88.5 Allergy status to narcotic agent; Z88.8 Allergy status to other drugs, medicaments and biological substances
CPT/HCPCS: 71045; 81002; 94640; 96361; 96374; 99283; J2405; J7030; J7512; J7613; Q0092

== ENCOUNTER → 2018-10-20 | Outpatient (CLI) | payer OTHER ==
[~2018-10-20] MED LIST changes: +BUDE1AER IH; -COZ50 PO; -DOCU-299 PO; +HYDR-133 PO; -HYDR-5123 PO; -LEVO750T2 PO; +LOSA50TA66 PO; -METR250T2 PO; +MULT-153 PO; -ORE25 PO
== END | disposition home or self-care (01) ==
LOC: MRD 14:43
PROVIDERS: ATTEND Internal Medicine Geriatric Medicine
DX: M25.561 Pain in right knee (principal)
CPT/HCPCS: 73562

== ENCOUNTER 2018-11-26 14:09 | Emergency (ER) | payer OTHER ==
[~2018-11-26] VITALS: Ht 157.5 cm; Wt 99.8 kg
[2018-11-26 14:24] VITALS: BP 113/64
--- NOTE | 2018-11-26 14:40 | NUR ---
PT BIB C/O BILATERAL KNEE PAIN X1 MONTH, AND IT IS GETTING WORSE ON THE LEFT KNEE FOR 4 DAYS. PT STATES SHE HEARD A POPPING SOUND TO LEFT KNEE LAST NIGHT. NO DEFORMITY, NO SWELLING NOTED. LIMITED ROM TO LEFT LEG. DENIES N/V/D; SKIN IS PINK/WARM/DRY, NO SWELLING NOTICED ON BOTH KNEES; AAOX4; PT DENIES ANY FEVER, CP, SOB, OR COUGH AT THIS TIME; PATIENT STATES PAIN OF 7/10 AT THIS TIME; VSS; PATIENT POSITIONED FOR COMFORT; HOB ELEVATED; BEDRAILS UP X1; BED DOWN. ER MD MADE AWARE OF PT STATUS. IS AT BEDSIDE.
--- NOTE | 2018-11-26 15:55 | NUR ---
Pt is resting in bed with VSS. is at bedside.
--- NOTE | 2018-11-26 17:15 | NUR ---
APPLIED KRISTEN WRAP TO LEFT KNEE WITHOUT ANY ISSUES
[2018-11-26 17:32] VITALS: BP 129/79
--- NOTE | 2018-11-26 17:32 | NUR ---
Patient advised to follow up with PMD. Rx of Naprosyn given. Patient educated on indication of medication including possible reaction and side effects. Opportunity to ask questions provided and answered. Pt was discharged by Dr. Zhang.
== END 2018-11-26 17:32 | disposition home or self-care (01) ==
LOC: MED 14:09
DX: S83.92XA Sprain of unspecified site of left knee, initial encounter (principal); J44.9 Chronic obstructive pulmonary disease, unspecified; Z90.49 Acquired absence of other specified parts of digestive tract; Z79.899 Other long term (current) drug therapy; Z88.5 Allergy status to narcotic agent; Z88.8 Allergy status to other drugs, medicaments and biological substances; X58.XXXA Exposure to other specified factors, initial encounter; Y93.89 Activity, other specified; Y92.89 Other specified places as the place of occurrence of the external cause; Y99.8 Other external cause status
CPT/HCPCS: 73562; 81002; 99283

== ENCOUNTER 2019-01-29 15:21 | Emergency (ER) | payer OTHER ==
[~2019-01-29] VITALS: Ht 157.5 cm; Wt 99.8 kg
--- NOTE | 2019-01-29 16:03 | NUR ---
PATIENT WHEELCHAIR ASSISTED TO BED 5.
[2019-01-29 16:13] VITALS: BP 114/77
--- NOTE | 2019-01-29 16:13 | NUR ---
C/O BACK PAIN 12/17 X WEDNESDAY. PATIENT STATES SHE UNDERWENT COLONOSCOPY SURGERY AT [facility] WITH DR JARRELL ON WEDNESDAY. NO OBVIOUS TRUAMA OR DEFORMITY. WENT TO URGENT CARE TODAY AND WEAS REFERRED TO ER FOR CT SCAN. VSS.[id number]. BED IS DOWN, LOCKED, EBD RAIL X 1, ERMD TO SEE PT PMH- MULTIPLE PREVIOUS SURGERIES
[2019-01-29] MEDS ORDERED: NACL 0.9% 1,000 ML IV ONE (17:07)
[2019-01-29] MEDS ORDERED: ONDANSETRON 4 MG/2 ML VIAL IVP ONE (17:10)
[2019-01-29] MEDS ORDERED: HYDROmorphone 1 MG/ML AMP IVP ONE (17:10)
--- NOTE | 2019-01-29 17:27 | NUR ---
[facility]
--- NOTE | 2019-01-29 17:38 | NUR ---
PT RETURNED FROM CT
[2019-01-29 17:42] LABS: BASOPHILS # (AUTO) 0.1 K/uL (0.00-0.22); BASOPHILS % (AUTO) 1.2 % (0.0-2.0); EOSINOPHILS # (AUTO) 0.2 K/uL (0-0.4); HEMATOCRIT 39.9 % (36-48); HEMOGLOBIN 12.8 g/dL (12.0-16.0); LYMPHOCYTES # (AUTO) 2.1 K/uL (2.5-16.5); LYMPHOCYTES % (AUTO) 22.5 % (20.5-51.1); MEAN CORPUSCULAR HEMOGLOBIN 28 pg (27-31); MEAN CORPUSCULAR HGB CONC 32 g/dL (33-37); MEAN CORPUSCULAR VOLUME 87.4 fL (80-94); MONOCYTES # (AUTO) 0.6 K/uL (0.8-1.0); MONOCYTES % (AUTO) 6.4 % (1.7-9.3); NEUTROPHILS # (AUTO) 6.3 K/uL (1.8-7.7); NEUTROPHILS % (AUTO) 67.9 % (42.2-75.2); PLATELET COUNT (AUTO) 327 K/uL (140-450); RED BLOOD CELL COUNT(AUTO) 4.56 MIL/uL (4.20-5.40); RED CELL DISTRIBUTION WIDTH 15.4 % (11.6-13.7); WHITE BLOOD COUNT (AUTO) 9.3 K/uL (4.8-10.8)
[2019-01-29 17:45] LABS: APPEARANCE,URINE CLEAR (CLEAR); BILIRUBIN,URINE NEGATIVE (NEGATIVE); BLOOD, URINE NEGATIVE (NEGATIVE); COLOR,URINE YELLOW (YELLOW); LEUKOCYTE ESTERASE ,URINE NEGATIVE (NEGATIVE); NITRITE, URINE NEGATIVE (NEGATIVE); UGLUCOSE NEGATIVE (NEGATIVE)
--- NOTE | 2019-01-29 17:48 | NUR ---
VSS AT THIS TIME. PT AA0X4
[2019-01-29 17:55] LABS: ANION GAP 11.9 (8-16); CARBON DIOXIDE 28.8 mmol/L (21-32); CREATININE 0.8 mg/dL (0.6-1.3); POTASSIUM 3.7 mmol/L (3.5-5.1)
--- NOTE | 2019-01-29 18:38 | NUR ---
PT SLEEPING. SATS DROP TO 91. PT WOKEN UP AND NOW AT 97% RA
--- NOTE | 2019-01-29 19:07 | NUR ---
RECEIVED REPORT FROM LATOSHA JESUS. PT IN BED RESTING, VSS AT THIS TIME, WILL CONTINUE TO MONITOR CLOSELY.
--- NOTE | 2019-01-29 19:07 | NUR ---
report given to luz rn, transfer of care
--- NOTE | 2019-01-29 19:23 | NUR ---
Dr. Brown examining patient.
[2019-01-29 19:27] LABS: TOTAL BILIRUBIN 0.5 mg/dL (0.0-1.0)
[2019-01-29 19:28] LABS: ALBUMIN 3.7 g/dL (3.4-5.0)
[2019-01-29 19:43] VITALS: BP 124/55
--- NOTE | 2019-01-29 19:43 | NUR ---
DISCHARGE PAPERS GIVEN TO PT. 09/16 TOLLERABLE PAIN. VSS. WHEEL CHAIR ASSISTED TO VEHICLE. RX OF NAPROSYN AND VALIUM GIVEN. SIDE EFFECTS EXPLAINED. INSTRUCTED TO F/U WITH PCP AND WHEN TO RETURN TO ER. PT VERBALLIZED UNDERSTANDING OF DC INSTRUCTIONS. ALL QUESTINS ANSWERED.
== END 2019-01-29 19:43 | disposition home or self-care (01) ==
LOC: MED 15:21
DX: M54.9 Dorsalgia, unspecified (principal); J44.9 Chronic obstructive pulmonary disease, unspecified; I10 Essential (primary) hypertension; Z90.49 Acquired absence of other specified parts of digestive tract; Z98.890 Other specified postprocedural states; Z79.899 Other long term (current) drug therapy; Z88.5 Allergy status to narcotic agent; Z85.3 Personal history of malignant neoplasm of breast
CPT/HCPCS: 36415; 74176; 80053; 81003; 81025; 83690; 85025; 96374; 96375; 99284; J1170; J2405; J7030